=== PATIENT | female | born 1960 | race Hispanic/Latino ===

== ENCOUNTER 2023-11-13 12:46 | Emergency (ER) | payer OTHER ==
[~2023-11-13] VITALS: Ht 149.9 cm; Wt 67.1 kg
[2023-11-13 12:52] VITALS: PULSE 75; RESP 16; TEMP 98.1; O2SAT 97
[2023-11-13] MEDS ORDERED: BENZONATATE200 MG PO (13:18)
== END 2023-11-13 13:27 | disposition home or self-care (01) ==
LOC: FSED 12:52
DX: R05.9 Cough, unspecified (principal); U07.1 COVID-19; R51.9 Headache, unspecified; E11.9 Type 2 diabetes mellitus without complications
CPT/HCPCS: 0223U; 83518 ×2; 87400; 99283